=== PATIENT | female | born 1945 ===

== ENCOUNTER 2018-02-09 07:41 | Day surgery (SDC) | payer MEDICARE ==
[2015-03-27 07:41] VITALS: BMI 25.4
[2018-02-09] MEDS ORDERED: Lactated Ringer's 500 ML IV ONE (08:19)
[2018-02-09 08:41] VITALS: TEMP 97.7
[2018-02-09] MEDS ORDERED: Midazolam 2 MG/2 ML VIAL ONE (09:52)
[2018-02-09] MEDS ORDERED: Etomidate 20 mg/10ml Inj IV ONE (09:52)
[2018-02-09] MEDS ORDERED: Propofol 10 mg/ml Inj (20 ML) ONE (09:54)
[2018-02-09 10:53] VITALS: BP 130/73; PULSE 68; RESP 20; O2SAT 100
== END 2018-02-09 11:02 | disposition home or self-care (01) ==
LOC: H.ENDO 07:41
PROVIDERS: ATTEND Internal Medicine Gastroenterology
DX: K30 Functional dyspepsia (principal); K44.9 Diaphragmatic hernia without obstruction or gangrene; K22.2 Esophageal obstruction; K29.50 Unspecified chronic gastritis without bleeding; E03.9 Hypothyroidism, unspecified; I10 Essential (primary) hypertension
CPT/HCPCS: 43239; 88305; J2001; J2250; J2704; J7120